=== PATIENT | male | born 1975 | race African-American/Black ===

== ENCOUNTER 2022-01-22 15:15 | Emergency (ER) | payer SELFPAY ==
[~2022-01-22] VITALS: Ht 188 cm; Wt 113.0 kg
[2022-01-22 15:20] VITALS: BP 164/95
== END 2022-01-22 21:36 | disposition left against medical advice (07) ==
LOC: ER 15:15
DX: Z53.21 Procedure and treatment not carried out due to patient leaving prior to being seen by health care provider (principal); E11.9 Type 2 diabetes mellitus without complications; I10 Essential (primary) hypertension